=== PATIENT | male | born 1990 | race Two or more races ===

== ENCOUNTER 2020-06-20 22:59 | Emergency (ER) | payer SELFPAY ==
[~2020-06-20] VITALS: Ht 182.9 cm; Wt 114.0 kg
[2020-06-20] MEDS ORDERED: ONDANSETRON HCL 4MG/2ML INJ IV STA (23:09)
[2020-06-20] MEDS ORDERED: SODIUM CHLORIDE 0.9% 1,000 ML IV ONE (23:09)
[2020-06-20] MEDS ORDERED: NALOXONE HCL 0.4 MG/ML 1ML VIAL IV ONE (23:30)
[2020-06-20 23:56] LABS: HEMATOCRIT. 40.5 % (42.0-52.0); HEMOGLOBIN. 14.1 g/dL (14.0-18.0); MEAN CORPUSCULAR HEMOGLOBIN 32.5 pg (28.0-32.0); MEAN CORPUSCULAR VOLUME 93.7 fL (80.0-94.0); MEAN PLATELET VOLUME 7.7 fl (7.4-10.4); PLATELET 236 x1000/uL (130-400); RED BLOOD CELL COUNT 4.32 mill/uL (4.7-6.1); RED CELL DISTRIBUTION WIDTH 12.4 % (11.6-14.6)
[2020-06-21 00:02] LABS: CHLORIDE 107 mEq/L (98-107)
[2020-06-21 00:08] LABS: ETHANOL BLOOD < 10 mg/dL
[2020-06-21 00:27] LABS: PLATELET ESTIMATE NORMAL
[2020-06-21 01:54] LABS: CLARITY URINE CLEAR (CLEAR); COLOR URINE DK YELLOW (YELLOW); KETONES URINE TRACE (NEGATIVE); LEUKOCYTE ESTERASE URINE NEGATIVE (NEGATIVE); NITRITE URINE NEGATIVE (NEGATIVE); OCCULT BLOOD URINE TRACE (NEGATIVE); PH URINE 5.5 (4.5-8.0); PROTEIN URINE 1+ (NEGATIVE); SPECIFIC GRAVITY URINE 1.023 (1.005-1.030)
[2020-06-21 02:06] LABS: *AMPHETAMINES SCREEN URINE PRESUMTIVE POSITIVE (NEGATIVE); *BARBITURATES SCREEN URINE NEGATIVE (NEGATIVE); *BENZODIAZEPINES SCREEN URINE NEGATIVE (NEGATIVE); METHADONE URINE SCREEN NEGATIVE (NEGATIVE); OPIATES URINE SCREEN NEGATIVE (NEGATIVE)
[2020-06-21 02:07] LABS: CANNABINOID URINE SCREEN PRESUMTIVE POSITIVE (NEGATIVE); PHENCYCLIDINE URINE SCREEN NEGATIVE (NEGATIVE)
[2020-06-21 02:16] LABS: *COCAINE SCREEN URINE PRESUMTIVE POSITIVE (NEGATIVE)
[2020-06-21] MEDS ORDERED: ASPIRIN 325MG TABLET PO NR (03:00)
[2020-06-21] MEDS ORDERED: DEXT 5%/0.45% NACL 1000ML 1,000 ML IV SCH (06:59)
[2020-06-21] MEDS ORDERED: MAGNESIUM/ALUMINUM HYDROXIDE/SIMETHICONE 30ML UDC PO PRN (07:00)
[2020-06-21] MEDS ORDERED: DOCUSATE SODIUM 100MG CAPSULE PO PRN (07:00)
[2020-06-21] MEDS ORDERED: ACETAMINOPHEN 325MG TABLET PO PRN (07:00)
[2020-06-21] MEDS ORDERED: CEFTRIAXONE 1 G PREMIX 50 ML IV SCH (07:00)
[2020-06-21] MEDS ORDERED: LORAZEPAM 2MG/ML CPJ IV PRN (07:00)
[2020-06-21] MEDS ORDERED: ENOXAPARIN 40MG/0.4ML SYR SUBCUT SCH (07:00)
[2020-06-21] MEDS ORDERED: DIPHENHYDRAMINE 50MG/ML VIAL IV PRN (07:00)
[2020-06-21] MEDS ORDERED: IPRATROPIUM/ALBUTEROL 0.5-3(2.5)MG/3ML NEB HHN PRN (07:00)
[2020-06-21] MEDS ORDERED: GUAIFENESIN 200MG/10ML SUGAR FREE UDC PO PRN (07:00)
[2020-06-21] MEDS ORDERED: HYDRALAZINE 20MG/ML VIAL IV PRN (07:00)
[2020-06-21] MEDS ORDERED: ONDANSETRON HCL 4MG/2ML INJ IV PRN (07:00)
[2020-06-21] MEDS ORDERED: CLONIDINE 0.1MG TABLET PO PRN (07:00)
[2020-06-21 07:44] VITALS: BP 115/65
[2020-06-21] MEDS ORDERED: SODIUM CHLORIDE 0.9% INJ 3ML FLUSH IVF SCH (14:00)
[2020-06-21] MEDS ORDERED: METRONIDAZOLE 500 MG PREMIX 100 ML IV SCH (14:00)
== END 2020-06-21 07:50 | disposition left against medical advice (07) ==
LOC: ER 23:48 → CANBEDREQ 06-21 07:48 → ER 06-21 07:50
DX: R00.1 Bradycardia, unspecified (principal); F19.10 Other psychoactive substance abuse, uncomplicated; R07.89 Other chest pain; T68.XXXA Hypothermia, initial encounter; F11.10 Opioid abuse, uncomplicated; X58.XXXA Exposure to other specified factors, initial encounter
CPT/HCPCS: 36415; 70450; 71045; 74176; 80053; 80305; 80307; 80320; 80329; 81003; 82140; 83690; 83880; 84443; 84484; 85025; 87086; 96361; 96374; 96375; 99285; J2310; J2405; J7030; G0480